=== PATIENT | male | born 1980 | race African-American/Black ===

== ENCOUNTER 2019-02-15 11:37 | Inpatient (IN) | payer SELFPAY ==
--- NOTE | 2019-02-15 12:07 | EDPHYS ---
Physician Documentation [facility] Name: Garcia Roy Age: 38 yrs Sex: Male : 1980 Arrival Date: 02/15/2019 Time: 11:42 Bed 5 Private MD: ED Physician Sharif Cramer HPI: 02/15 12:01 This 38 yrs old Black Male presents to ER via Ambulatory with complaints of Hernia. alejo 12:01 The patient presents with abdominal pain right lower quadrant. Onset: The alejo symptoms/episode began/occurred 2 day(s) ago. The patient presents with scrotal pain, swelling, tenderness. Onset: The symptoms/episode began/occurred 2 day(s) ago. Modifying factors: The symptoms are alleviated by nothing, the symptoms are aggravated by movement, pressure. Associated signs and symptoms: The patient has no apparent associated signs or symptoms. Severity of pain: At its worst the pain was moderate in the emergency department the pain is unchanged. Historical: - Allergies: 11:45 No Known Allergies; bp - Home Meds: 11:45 None [Active]; bp - PMHx: 11:45 None; bp - Immunization history:: Adult Immunizations up to date. - Social history:: Smoking status: Patient/guardian denies using tobacco. - Ebola Screening: : No symptoms or risks identified at this time. - Family history:: not pertinent. ROS: 12:01 Constitutional: Negative for fever, chills, and weight loss, Eyes: Negative for injury, alejo pain, redness, and discharge, ENT: Negative for injury, pain, and discharge, Neck: Negative for injury, pain, and swelling, Cardiovascular: Negative for chest pain, palpitations, and edema, Respiratory: Negative for shortness of breath, cough, wheezing, and pleuritic chest pain, Back: Negative for injury and pain, : Negative for injury, bleeding, discharge, and swelling, MS/Extremity: Negative for injury and deformity, Skin: Negative for injury, rash, and discoloration, Neuro: Negative for headache, weakness, numbness, tingling, and seizure, Psych: Negative for depression, anxiety, suicide ideation, homicidal ideation, and hallucinations, Allergy/Immunology: Negative for hives, rash, and allergies, Endocrine: Negative for neck swelling, polydipsia, polyuria, polyphagia, and marked weight changes, Hematologic/Lymphatic: Negative for swollen nodes, abnormal bleeding, and unusual bruising. 12:01 Abdomen/GI: Positive for abdominal pain, of the right lower quadrant. Exam: 12:01 Constitutional: This is a well developed, well nourished patient who is awake, alert, alejo and in no acute distress. Head/Face: Normocephalic, atraumatic. Eyes: Pupils equal round and reactive to light, extra-ocular motions intact. Lids and lashes normal. Conjunctiva and sclera are non-icteric and not injected. Cornea within normal limits. Periorbital areas with no swelling, redness, or edema. ENT: Nares patent. No nasal discharge, no septal abnormalities noted. Tympanic membranes are normal and external auditory canals are clear. Oropharynx with no redness, swelling, or masses, exudates, or evidence of obstruction, uvula midline. Mucous membranes moist. Neck: Trachea midline, no thyromegaly or masses palpated, and no cervical lymphadenopathy. Supple, full range of motion without nuchal rigidity, or vertebral point tenderness. No Meningismus. Chest/axilla: Normal chest wall appearance and motion. Nontender with no deformity. No lesions are appreciated. Cardiovascular: Regular rate and rhythm with a normal S1 and S2. No gallops, murmurs, or rubs. Normal PMI, no JVD. No pulse deficits. Respiratory: Lungs have equal breath sounds bilaterally, clear to auscultation and percussion. No rales, rhonchi or wheezes noted. No increased work of breathing, no retractions or nasal flaring. Abdomen/GI: Soft, non-tender, with normal bowel sounds. No distension or tympany. No guarding or rebound. No evidence of tenderness throughout. Back: No spinal tenderness. No costovertebral tenderness. Full range of motion. Skin: Warm, dry with normal turgor. Normal color with no rashes, no lesions, and no evidence of cellulitis. MS/ Extremity: Pulses equal, no cyanosis. Neurovascular intact. Full, normal range of motion. Neuro: Awake and alert, GCS 15, oriented to person, place, time, and situation. Cranial nerves II-XII grossly intact. Motor strength 5/5 in all extremities. Sensory grossly intact. Cerebellar exam normal. Normal gait. Psych: Awake, alert, with orientation to person, place and time. Behavior, mood, and affect are within normal limits. 12:01 : CVA tenderness, is absent, Male external genitalia: normal, Circumcision noted. Bladder: is normal, Sexual behavior: the patient is sexually active, and reports a single partner. Vital Signs: 11:45 BP 118 / 73; Pulse 59; Resp 16; Temp 98.5; Pulse Ox 100% ; Weight 83.91 kg; Height 6 bp ft. (182.88 cm); 15:11 BP 118 / 72; Pulse 71; Resp 17 S; Temp 98.5; Pulse Ox 99% on R/A; Pain 3/10; jl7 11:45 Body Mass Index 25.09 (83.91 kg, 182.88 cm) bp Procedures: 13:20 Peripheral line: by aseptic technique a peripheral line was placed in the right [facility] external jugular vein. MDM: 11:49 Patient medically screened. [facility] 12:04 Data reviewed: vital signs, nurses notes, lab test result(s), EKG, radiologic studies, [facility] CT scan, plain films. 02/15 12:00 Order name: Basic Metabolic Panel; Complete Time: 14:10 [facility] 02/15 12:00 Order name: CBC with Diff; Complete Time: 14:10 [facility] 02/15 12:00 Order name: LFT's; Complete Time: 14:10 [facility] 02/15 12:00 Order name: Magnesium; Complete Time: 14:10 [facility] 02/15 12:00 Order name: NT PRO-BNP; Complete Time: 14:10 [facility] 02/15 12:00 Order name: PT-INR; Complete Time: 14:10 [facility] 02/15 12:00 Order name: Troponin (emerg Dept Use Only); Complete Time: 14:10 [facility] 02/15 12:00 Order name: XRAY Chest (1 view) [facility] 02/15 12:00 Order name: Lipase; Complete Time: 14:10 [facility] 02/15 12:00 Order name: Urine Culture [facility] 02/15 12:00 Order name: CT Abd/Pelvis - PO and IV Contrast [facility] 02/15 13:15 Order name: RAD; Complete Time: 14:10 [facility] 02/15 14:19 Order name: Urine Dipstick--Ancillary (enter results) 02/15 14:51 Order name: CT EDUT 02/15 12:00 Order name: EKG; Complete Time: 12:02 [facility] 02/15 12:00 Order name: Cardiac monitoring; Complete Time: 15:03 [facility] 02/15 12:00 Order name: EKG - Nurse/Tech; Complete Time: 15:03 [facility] 02/15 12:00 Order name: IV Saline Lock; Complete Time: 13:02 [facility] 02/15 12:00 Order name: Labs collected and sent; Complete Time: 13: [facility] 02/15 12:00 Order name: O2 Per Protocol; Complete Time: 13:03 [facility] 02/15 12:00 Order name: O2 Sat Monitoring; Complete Time: 13: [facility] 02/15 12:00 Order name: Urine Dipstick-Ancillary (obtain specimen); Complete Time: 15:03 [facility] Administered Medications: 13:30 Drug: NS 0.9% 1000 ml Route: IV; Rate: 1 bolus; Site: right jugular; sg 13:30 Drug: morphine 4 mg Route: IVP; Site: right jugular; sg 14:25 Follow up: Response: No adverse reaction; Pain is decreased; RASS: Alert and Calm (0) sg 13:30 Drug: Zofran 4 mg Route: IVP; Site: right jugular; sg 14:00 Follow up: Response: No adverse reaction sg 13:30 Drug: Cipro 400 mg Volume: 200 ml; Route: IVPB; Infused Over: 60 mins; Site: right sg jugular; 15:04 Follow up: Response: No adverse reaction; IV Status: Completed infusion sg 13:30 Drug: Flagyl 500 mg Volume: 100 ml; Route: IVPB; Rate: 200 ml/hr; Infused Over: 30 sg mins; Site: right jugular; 14:00 Follow up: Response: No adverse reaction; IV Status: Completed infusion sg 15:01 Drug: NS 0.9% 1000 ml Route: IV; Rate: 125 ml/hr; Site: right jugular; sg 15:20 Follow up: Response: No adverse reaction; IV Status: Infusion continued upon admission jl7 Disposition: 02/15/19 12:06 Hospitalization ordered by Delbert Ulrich for Inpatient Admission. Preliminary diagnosis are Unilateral inguinal hernia, without obstruction or gangrene, not specified as recurrent, Abdominal tenderness. - Bed requested for Telemetry/MedSurg (Inpatient). - Status is Inpatient Admission. sg - Condition is Stable. - Problem is new. - Symptoms have improved. UTI on Admission? No Signatures: Dispatcher [employer] EDMS Blanche Santos RN BALDOMERO dw Will Hendricks RN RN sg Anderson, Corey, MD MD cha Peltier, Brian, RN Sekou Wilkerson RN jl7 Corrections: (The following items were deleted from the chart) 14:56 12:06 Hospitalization Ordered by Delbert Ulrich MD for Inpatient Admission. Preliminary dw diagnosis is Unilateral inguinal hernia, without obstruction or gangrene, not specified as recurrent; Abdominal tenderness. Bed requested for Telemetry/MedSurg (Inpatient). Status is Inpatient Admission. Condition is Stable. Problem is new. Symptoms have improved. UTI on Admission? No. [facility] 15:22 14:56 02/15/2019 12:06 Hospitalization Ordered by Delbert Ulrich MD for Inpatient sg Admission. Preliminary diagnosis is Unilateral inguinal hernia, without obstruction or gangrene, not specified as recurrent; Abdominal tenderness. Bed requested for Telemetry/MedSurg (Inpatient). Status is Inpatient Admission. Condition is Stable. Problem is new. Symptoms have improved. UTI on Admission? No. dw
--- NOTE | 2019-02-15 12:07 | ER ---
Nurse's Notes [facility] Name: Garcia Roy Age: 38 yrs Sex: Male : 1980 Arrival Date: 02/15/2019 Time: 11:42 Bed 5 Private MD: Diagnosis: Unilateral inguinal hernia, without obstruction or gangrene, not specified as recurrent;Abdominal tenderness Presentation: 02/15 11:44 Presenting complaint: Patient states: R GROIN HERNIA x MONTHS. Transition of care: bp patient was not received from another setting of care. Onset of symptoms is unknown. Risk Assessment: Do you want to hurt yourself or someone else? Patient reports no desire to harm self or others. Initial Sepsis Screen: Does the patient meet any 2 criteria? No. Patient's initial sepsis screen is negative. Does the patient have a suspected source of infection? No. Patient's initial sepsis screen is negative. Care prior to arrival: None. 11:44 Method Of Arrival: Ambulatory bp 11:44 Acuity: JENNI 3 bp 11:46 Note SUDDEN INCREASE IN PAIN AND HERNIA SIZE TODAY. bp Historical: - Allergies: 11:45 No Known Allergies; bp - Home Meds: 11:45 None [Active]; bp - PMHx: 11:45 None; bp - Immunization history:: Adult Immunizations up to date. - Social history:: Smoking status: Patient/guardian denies using tobacco. - Ebola Screening: : No symptoms or risks identified at this time. - Family history:: not pertinent. Screenin:30 Abuse screen: Denies threats or abuse. Denies injuries from another. Nutritional sg screening: No deficits noted. Tuberculosis screening: No symptoms or risk factors identified. Never had TB. Fall Risk None identified. Assessment: 12:15 General: Appears in no apparent distress. well groomed, well developed, well nourished, sg Behavior is calm, cooperative, appropriate for age. Pain: Complains of pain in right inguinal area and right lower quadrant Quality of pain is described as aching. Neuro: Level of Consciousness is awake, alert, obeys commands, Oriented to person, place, situation, Moves all extremities. Speech is normal, Facial symmetry appears normal. Cardiovascular: Patient's skin is warm and dry. Respiratory: Airway is patent Respiratory effort is even, unlabored, Respiratory pattern is regular, symmetrical. GI: Abdomen is round non-distended, Bowel sounds present X 4 quads. Reports nausea, tolerance of fluids, tolerance of food. : No signs and/or symptoms were reported regarding the genitourinary system. :. EENT: No signs and/or symptoms were reported regarding the EENT system. Derm: Skin is pink, warm \T\ dry. Musculoskeletal: No signs and/or symptoms reported regarding the musculoskeletal system. 12:23 Reassessment: Patient appears in no apparent distress at this time. sg 13:30 Reassessment: Patient appears in no apparent distress at this time. Patient and/or sg family updated on plan of care and expected duration. Pain level reassessed. 14:30 Reassessment: Patient appears in no apparent distress at this time. Patient and/or sg family updated on plan of care and expected duration. Pain level reassessed. Patient is alert, oriented x 3, equal unlabored respirations, skin warm/dry/pink. pt awaiting admission to hospital at this time Patient states feeling better. Vital Signs: 11:45 BP 118 / 73; Pulse 59; Resp 16; Temp 98.5; Pulse Ox 100% ; Weight 83.91 kg; Height 6 bp ft. (182.88 cm); 15:11 BP 118 / 72; Pulse 71; Resp 17 S; Temp 98.5; Pulse Ox 99% on R/A; Pain 3/10; jl7 11:45 Body Mass Index 25.09 (83.91 kg, 182.88 cm) bp ED Course: 11:42 Patient arrived in ED. mr 11:45 Triage completed. bp 11:45 Arm band placed on. bp 11:49 Sharif Cramer MD is Attending Physician. alejo 12:00 Sekou León RN is Primary Nurse. jl7 12:04 Delbert Ulrich MD is Hospitalizing Provider. alejo 12:15 Patient has correct armband on for positive identification. Bed in low position. Call sg light in reach. Side rails up X2. Pulse ox on. NIBP on. 12:23 Missed attempt(s): 22 gauge in right antecubital area. Bleeding controlled, band aid sg applied, catheter tip intact. 12:44 X-ray completed. Portable x-ray completed in exam room. Patient tolerated procedure jb2 well. 12:51 EKG done, by therapy technician. reviewed by Sharif Cramer MD. at1 13:02 Missed attempt(s): 22 gauge in right forearm. Bleeding controlled, band aid applied, sg catheter tip intact. 13:20 IV access to the Right EJ performed by , blood collected and sent. sg 15:13 Patient admitted, IV remains in place. intact, No redness/swelling at site. sg Administered Medications: 13:30 Drug: NS 0.9% 1000 ml Route: IV; Rate: 1 bolus; Site: right jugular; sg 13:30 Drug: morphine 4 mg Route: IVP; Site: right jugular; sg 14:25 Follow up: Response: No adverse reaction; Pain is decreased; RASS: Alert and Calm (0) sg 13:30 Drug: Zofran 4 mg Route: IVP; Site: right jugular; sg 14:00 Follow up: Response: No adverse reaction sg 13:30 Drug: Cipro 400 mg Volume: 200 ml; Route: IVPB; Infused Over: 60 mins; Site: right sg jugular; 15:04 Follow up: Response: No adverse reaction; IV Status: Completed infusion sg 13:30 Drug: Flagyl 500 mg Volume: 100 ml; Route: IVPB; Rate: 200 ml/hr; Infused Over: 30 sg mins; Site: right jugular; 14:00 Follow up: Response: No adverse reaction; IV Status: Completed infusion sg 15:01 Drug: NS 0.9% 1000 ml Route: IV; Rate: 125 ml/hr; Site: right jugular; sg 15:20 Follow up: Response: No adverse reaction; IV Status: Infusion continued upon admission jl7 Outcome: 12:06 Decision to Hospitalize by Provider. alejo 15:12 Admitted to Tele accompanied by tech, via wheelchair, room 215, with chart, Report sg called to Gloria ALEXANDRE 15:12 Condition: good 15:12 Instructed on follow up and referral plans. the need for admit, safety practices. 15:22 Patient left the ED. sg Signatures: Will Hendricks, RN RN Sharif Ambrosio MD MD cha Rivera, Kylee Burks, Kenneth jb2 Litzy Scott, health data analyst EKG Jeremy1 Sekou León RN RN jl7 Hawk Diaz RN RN bp Corrections: (The following items were deleted from the chart) 19:35 15:11 BP 118 / 72; Pulse 17bpm; Resp 17bpm; Spontaneous; Pulse Ox 99% RA; Temp 98.5F; jl7 Pain 08/02; sg
[2019-02-15] MEDS ORDERED: MORPHINE 4 MG/ML SYR ONE (12:10)
[2019-02-15] MEDS ORDERED: ONDANSETRON 4 MG/2 ML VIAL ONE (12:10)
[2019-02-15] MEDS ORDERED: METRONIDAZOLE 500mg IVPB 500 MG/100 ML BAG IV ONE (12:11)
[2019-02-15] MEDS ORDERED: CIPROFLOXACIN 400mg IV 400 MG/200 ML BAG IV ONE (12:11)
[2019-02-15] MEDS ORDERED: NA CHLORIDE 0.9% 1,000 ML ONE ×2 (12:11→15:17)
--- NOTE | 2019-02-15 12:52 | RAD REPORT ---
EXAM DESCRIPTION: RAD - Chest Single View - 02/15/2019 12:45 pm CLINICAL HISTORY: COUGH Chest pain. COMPARISON: No comparisons FINDINGS: Portable technique limits examination quality. The lungs are grossly clear. The heart is normal in size. No displaced fractures. IMPRESSION: No acute intrathoracic process suspected.
[2019-02-15 13:31] LABS: Absolute Lymphocytes (CBC) 1.3 K/uL (0.7-4.9); Basophils % 1.5 % (0-1.3); Hematocrit 33.3 % (39.6-49.0); Lymphocytes % 17.9 % (15.3-44.8); RBC Red Blood Cell Count 3.32 M/uL (4.33-5.43)
[2019-02-15 13:32] LABS: Protime INR 0.99
--- NOTE | 2019-02-15 13:34 | EKG ---
Test Date: 2019-02-15 Test Time: 12:47:57 Banking Officer: LYNNE MEASUREMENT RESULTS: Intervals: Rate: 51 MT: 142 QRSD: 94 QT: 418 QTc: 385 Marcellus: P: 42 MT: 142 QRS: 31 T: 6 INTERPRETIVE STATEMENTS: Sinus bradycardia Nonspecific ST and T wave abnormality Abnormal ECG No previous ECG available for comparison Electronically Signed On 02-15-19 13:33:48 CDT by Buster Masterson
[2019-02-15 14:04] LABS: ALT/SGPT 27 U/L (12-78); AST/SGOT 22 U/L (15-37); Alkaline Phosphatase 41 U/L (45-117); BUN Blood Urea Nitrogen 9 mg/dL (7-18); Bicarbonate 28 mmol/L (21-32); Bilirubin Direct 0.1 mg/dL (0-0.2); Bilirubin Total 0.4 mg/dL (0.2-1.0); Glucose Level 93 mg/dL (74-106); Lipase 26 U/L (73-393); Magnesium 1.9 mg/dL (1.8-2.4); NT PRO-BNP 247 pg/mL (<125); Potassium 3.6 mmol/L (3.5-5.1); Protein, Total 7.6 g/dL (6.4-8.2); Sodium Level 140 mmol/L (136-145); Troponin (Emerg Dept Use Only) < 0.02 ng/mL (0.0-0.045)
--- NOTE | 2019-02-15 14:45 | RAD REPORT ---
EXAM DESCRIPTION: CTAbdomen Pelvis W Contrast - 02/15/2019 2:34 pm CLINICAL HISTORY: Abdominal pain. ABD PAIN COMPARISON: No comparisons TECHNIQUE: Biphasic CT imaging of the abdomen and pelvis was performed with 100 ml non-ionic IV cont rast. All CT scans are performed using dose optimization technique as appropriate and may include automated exposure control or mA/KV adjustment according to patient size. FINDINGS: The lung bases are clear.Small bilateral pleural effusions. The liver, spleen, adrenal glands and kidneys are within normal limits. Atrophic changes affect the p ancreas. No bowel obstruction, free air, free fluid or abscess. Very large right inguinal hernia is seen conta ining fat as well as small bowel. There is mild fluid within the hernia and edema within the fat. The appendix is normal. No evidence of significant lymphadenopathy. No suspicious bony findings. IMPRESSION: Very large right inguinal hernia containing as fat, fluid and small intestine. No bowel obstruction, however several of the small bowel loops appear mildly thickened suggesting evidence of incarceration developing.
[2019-02-15] MEDS ORDERED: ACETAMINOPHEN 325 MG TABLET PO PRN (15:50)
[2019-02-15] MEDS ORDERED: MORPHINE 4 MG/ML SYR IV PRN (15:50)
[2019-02-15] MEDS ORDERED: ONDANSETRON 4 MG/2 ML VIAL IV PRN (15:50)
[2019-02-15 16:06] VITALS: BMI 25.0
[2019-02-15 16:28] LABS: Urine Blood NEGATIVE (NEG); Urine Glucose NEGATIVE (NEG); Urine Protein NEGATIVE (NEG); Urine pH 5.5 (5.0-7.0)
[2019-02-15] MEDS: METRONIDAZOLE 500mg IVPB 500 MG/100 ML BAG IV SCH ×2 (17:04→23:46)
[2019-02-15] MEDS: D5 0.45 NS 1,000 ML IV SCH ×2 (17:04→23:50)
[2019-02-15] MEDS: CIPROFLOXACIN 400mg IV 400 MG/200 ML BAG IV SCH (21:57)
[2019-02-15] MEDS: FAMOTIDINE 20 MG/2 ML VIAL IV SCH (21:57)
[2019-02-16] MEDS: D5 0.45 NS 1,000 ML IV SCH ×3 (05:03→23:50)
[2019-02-16] MEDS: METRONIDAZOLE 500mg IVPB 500 MG/100 ML BAG IV SCH ×3 (05:04→17:09)
[2019-02-16 06:06] LABS: Absolute Lymphocytes (CBC) 2.1 K/uL (0.7-4.9); Basophils % 1.5 % (0-1.3); Hematocrit 31.3 % (39.6-49.0); Lymphocytes % 33.8 % (15.3-44.8); MPV 9.5 fL (7.6-11.3); RBC Red Blood Cell Count 3.11 M/uL (4.33-5.43)
[2019-02-16 06:08] LABS: ALT/SGPT 22 U/L (12-78); AST/SGOT 16 U/L (15-37); Albumin 3.4 g/dL (3.4-5.0); Alkaline Phosphatase 34 U/L (45-117); BUN Blood Urea Nitrogen 6 mg/dL (7-18); Bicarbonate 28 mmol/L (21-32); Bilirubin Direct 0.1 mg/dL (0-0.2); Bilirubin Total 0.5 mg/dL (0.2-1.0); Glucose Level 92 mg/dL (74-106); Lipase 20 U/L (73-393); Potassium 3.9 mmol/L (3.5-5.1); Protein, Total 6.4 g/dL (6.4-8.2); Sodium Level 140 mmol/L (136-145)
[2019-02-16] MEDS ORDERED: MIDAZOLAM HCL 2 MG/2 ML INJ ONE (07:18)
[2019-02-16] MEDS ORDERED: ROCURONIUM 50 MG/5 ML VIAL IV ONE ×2 (07:18→10:37)
[2019-02-16] MEDS ORDERED: PROPOFOL 200 MG/20 ML VIAL IV ONE (07:18)
[2019-02-16] MEDS ORDERED: LIDOCAINE 1% MPF 5 ML VIAL ONE (07:18)
[2019-02-16] MEDS ORDERED: FENTANYL CITR 100 MCG/2 ML ONE ×2 (07:18→09:29)
[2019-02-16] MEDS ORDERED: BUPIVACAINE 0.5% PF 10 ML VIAL ONE (07:31)
[2019-02-16] MEDS ORDERED: Ringers Lactate 1,000 ML IV ONE ×2 (07:55→11:04)
[2019-02-16] MEDS: CIPROFLOXACIN 400mg IV 400 MG/200 ML BAG IV SCH ×2 (08:35→21:03)
--- NOTE | 2019-02-16 08:36 | P.HP ---
Date of Service: 02/15/19 PC: This 38-year-old male presented to the emergency room with severe right inguinal pain for diagnosis and treatment. HPC: Patient has an enormous right inguinal hernia. Has been causing increasing pain in discomfort over the last few weeks. Has necessitating ER visits. He came to see me in my office today, had exquisite tenderness and was referred to the emergency room. PMH: Patient denies any other medical problems PSHx: Patient denies having had any other surgical repairs on this hernia SOC: No known allergies SYS REVIEW: No cough, wheeze, shortness of breath. No chest pain or palpitations. Denies any urinary complaints. Has continuous pain with his hernia bulges out. States he is able to push it back inside, but it now tends to stay out all the time. O/E awake alert uncomfortable HEENT: Within normal limits Chest: Air entry equal bilaterally ABD: Abdomen is soft, this patient has an enormous right inguinal hernia with complete blowout had an obvious intestines in the right hemiscrotum. Area is tense and tender to the touch LOCO: Intact DATA: White cell count normal, CT scan demonstrates a large hernia with small- bowel in the sac IMPRESSION: Large right inguinal hernia PLAN: I will take him to the operating room for laparoscopic possible open repair of this large right inguinal hernia. The risks of. The possibility of recurrence, bleeding, injury to bowel and surrounding structures as well as bleeding, nerve pain have been explained has does the need for follow-up, possible further operations, as well as complications from mesh. He understands and wants to proceed.
--- NOTE | 2019-02-16 08:38 | P.PN ---
Date of Service: 02/16/19 Once again had outlined with the patient and the operative plan. We will try and do this laparoscopically. The risks were reviewed. He may also require an incision as an open procedure because of the large sac associated with this hernia. He understands. Over the course of the night, he was able to reduce it back into his abdomen.
[2019-02-16] MEDS: FAMOTIDINE 20 MG/2 ML VIAL IV SCH ×2 (09:00→21:03)
[2019-02-16] MEDS ORDERED: KETOROLAC 30 MG/ML INJ ONE (09:20)
[2019-02-16] MEDS ORDERED: GLYCOPYRROLATE 0.2 MG/ML SYR ONE ×2 (09:20→10:46)
[2019-02-16] MEDS ORDERED: NEOSTIGMINE 1 MG/ML -10 ML VIAL ONE (09:21)
[2019-02-16] MEDS ORDERED: ONDANSETRON 4 MG/2 ML VIAL ONE (09:21)
[2019-02-16] MEDS: HYDROMORPHONE HCL 2 MG/ML inj ONE ×3 (11:01→11:21)
[2019-02-16] MEDS ORDERED: HYDROCODONE/APAP 7.5/325 MG TAB PO PRN (12:01)
[2019-02-16] MEDS ORDERED: ONDANSETRON 4 MG/2 ML VIAL IV PRN (12:01)
--- NOTE | 2019-02-16 12:04 | P.OP ---
Preoperative diagnosis: Right inguinal hernia Postoperative diagnosis: The same Primary procedure: Laparoscopy Secondary procedure: Open right inguinal hernia repair with mesh Anesthesia: General Estimated blood loss: Less than 50 cc Specimen: Part of hernia sac Operative Technique: The patient brought the operating room and placed supine on the table. After the induction of adequate general endotracheal anesthesia, the area of the abdomen was prepped with a DuraPrep solution, a Alvarez catheter was inserted, and he was draped in usual aseptic manner. A subumbilical incision was made. This brought down through the skin and subcutaneous tissue. The fashion was opened of over the rectus muscle. The balloon dissector was now passed down towards the pubic symphysis and inflated this preperitoneal space was now pressurized to approximately 12 mm of mercury. Under direct vision 2 5 mm trocars were placed in the lower midline. Attention was turned towards the right anterior abdominal wall. We could see that there was a large right indirect inguinal hernia in this area. Gentle dissection was began to expose this completely down to the muscle itself. Traction was applied to the hernia sac. We attempted to dissected from above. It had been reduced preoperatively and there was no bowel inside. It became obvious that we were unable to completely mobilize the sac. Hence this procedure was converted to an open. A right lower groin incision was made. This brought down through the skin and subcutaneous tissue. The external oblique was opened. The spermatic cord was isolated and dissected free from the surrounding tissue. The scrotum the hernia sac was now dissected out of the scrotum. The testicle and spermatic cord was identified. This was dissected off of our hernia sac. This hernia sac which measured approximately a 10 inches x 6 inches in size was now resected up at the level of the ring. It was close with a pursestring suture. This was allowed to drop back into the peritoneal cavity. At this point the testicle itself and the cord was placed back into the scrotum. A plug and patch repair was now done. The mesh was sutured to the and reflected edge of the inguinal ligament. Was done with Prolene. AE Pro Tacker was now used to fix the medial component to the Spenser's ligament area. The superior edge was then tacked to the reflected edge of the fascia. Having obtained a Re tension-free repair. The plug was placed in an sutured in place with some Prolene. The tails were split around the spermatic cord and this was snugged up using 2 sutures of interrupted Prolene. The fascia over the external oblique was now run with a running suture of Maxon the subcutaneous tissue was approximated with chromic and elvie were applied to the skin. At this point we were now able to reintroduce our scope. From the inside we could see the we had excellent repair with of the hernia sac well mobilized away from the anterior abdominal wall. There is no evidence of any At this point to pre peritoneum was deflated. The balloon structural balloon was deflated and removed. The facile defect was approximated with interrupted suture of PDS. Elvie were now applied to the skin At the end of the procedure the patient was in a stable condition when sent to the recovery room. Needle sponge instrument count were correct. No drains were placed. Transferred to: Recovery Room Condition: Good
[2019-02-16] MEDS: MORPHINE 4 MG/ML SYR IV PRN (21:02)
[2019-02-16 23:36] VITALS: O2SAT 96
[2019-02-17] MEDS: METRONIDAZOLE 500mg IVPB 500 MG/100 ML BAG IV SCH ×3 (00:31→11:25)
[2019-02-17] MEDS: D5 0.45 NS 1,000 ML IV SCH ×3 (04:40→15:50)
[2019-02-17] MEDS: MORPHINE 4 MG/ML SYR IV PRN (07:43)
[2019-02-17] MEDS: CIPROFLOXACIN 400mg IV 400 MG/200 ML BAG IV SCH (08:59)
[2019-02-17] MEDS ORDERED: ENOXAPARIN 30 MG/0.3 ML SQ SCH (09:00)
[2019-02-17] MEDS: FAMOTIDINE 20 MG/2 ML VIAL IV SCH (09:01)
--- NOTE | 2019-02-17 14:47 | P.PN ---
Date of Service: 02/17/19 S: Patient is no specific complaints today, does say he sore and tired. O: Incisions are clean, does have some scrotal swelling as expected. A: Surgically stable for discharge P: I will discharge the patient home. I have discussed with him pain medicine. He will need to take his blood thinner shots. He will see me next week in my office. We have discussed diet, moving around at home, continuing his incentive spirometry and wound care. Should any questions or problems, he has been advised to return to the emergency room or contact me.
--- NOTE | 2019-02-17 14:54 | P.DS ---
Admission Date: 02/15/19 Discharge Date: 02/17/19 Disposition: ROUTINE DISCHARGE Discharge Condition: GOOD Reason for Admission: Acute postoperative abdominal pain. Procedures: Laparoscopic converted to open repair of giant right inguinal sliding hernia Brief History of Present Illness: This patient, presents emergency room with severe pain in his right groin. He has an enormous hernia. Normally it was able to reduce but this had become stuck , he stopped having bowel movements, and was starting to get nauseous with some vomiting. Hospital Course: This patient presents emergency room with a incarcerated right inguinal hernia. He was evaluated in the ER. He was admitted for antibiotics and kept NPO. After the patient had received some pain medicine laid down he was noticed that the pain had subsided to a small degree in his groin. Due to the size of this hernia is concerned about whether not he will have loss of domain once it is reduced. The patient states that normally he is able to persist back inside himself. The patient was admitted and over the course of night time he was able to reduce it. These brought to the room or the following morning were he underwent a laparoscopic converted to open repair with plug and mesh. The hernia was reduced back into the peritoneal cavity. Today we seem to have an excellent resolved. He does have some scrotal swelling consistent reduction and removal of the large redundant sac from the scrotum. He has been up ambulating, voiding on his own, is tolerating a diet. We will keep him on anticoagulants subcutaneously for the next 7 days. Pain medicines minced prescribed for the patient. Discussed this with the patient in his palm. They appear to understand red comfortable with going home. Should they have any questions or problems, they can go to the emergency room or contact me. Vital Signs/Physical Exam: Temp Pulse Resp BP Pulse Ox 100.4 F 94 H 19 134/60 97 02/17/19 08:00 02/17/19 08:00 02/17/19 12:25 02/17/19 08:00 02/17/19 12:25 Laboratory Data at Discharge: WBC 6.2 K/uL (4.3-10.9) D 02/16/19 05:20 Hgb 10.8 g/dL (13.6-17.9) L 02/16/19 05:20 Hct 31.3 % (39.6-49.0) L 02/16/19 05:20 Plt Count 229 K/uL (152-406) 02/16/19 05:20 PT 11.7 SECONDS (9.5-12.5) 02/15/19 13:18 INR 0.99 02/15/19 13:18 Sodium 140 mmol/L (136-145) 02/16/19 05:20 Potassium 3.9 mmol/L (3.5-5.1) 02/16/19 05:20 BUN 6 mg/dL (7-18) L 02/16/19 05:20 Creatinine 0.88 mg/dL (0.55-1.3) 02/16/19 05:20 Glucose 92 mg/dL (74-106) 02/16/19 05:20 Magnesium 1.9 mg/dL (1.8-2.4) 02/15/19 13:18 Total Bilirubin 0.5 mg/dL (0.2-1.0) 02/16/19 05:20 AST 16 U/L (15-37) 02/16/19 05:20 ALT 22 U/L (12-78) 02/16/19 05:20 Alkaline Phosphatase 34 U/L (45-117) L 02/16/19 05:20 Lipase 20 U/L (73-393) L 02/16/19 05:20 Home Medications: Enoxaparin Sodium [Lovenox 30 MG INJ*] 30 mg SQ DAILY 7 Days #7 syr 02/17/19 New Medications: Enoxaparin Sodium [Lovenox 30 MG INJ*] 30 mg SQ DAILY 7 Days #7 syr Diet: Regular Activity: No lifting more than 10 lbs
[2019-02-17 15:54] VITALS: BP 132/64; TEMP 98.7
== END 2019-02-17 16:42 | disposition home or self-care (01) | DRG 352 ==
LOC: ER 11:37 → ERHOLD 12:07 → 2ND 15:15
PROVIDERS: ADMIT Surgery; ATTEND Surgery
PROC: 0YJ54ZZ Inspection of Right Inguinal Region, Percutaneous Endoscopic Approach (ICD-10-PCS; 2019-02-16)
PROC: 0YU50JZ Supplement Right Inguinal Region with Synthetic Substitute, Open Approach (ICD-10-PCS; principal; 2019-02-16 08:00)
DX: K40.30 Unilateral inguinal hernia, with obstruction, without gangrene, not specified as recurrent (principal)
CPT/HCPCS: 36415; 71045; 74177; 80048; 80076; 81003; 83690; 83735; 83880; 84484; 85025; 85610; 87086; 87088; 88302; 93005; 96365; 96366; 96368; 96375; 99285; J0744; J1170; J1650; J2250; J2405; J2704; J2710; J3010; J7030; Q9967